=== PATIENT | female | born 1995 | race Caucasian/White ===

== ENCOUNTER 2024-11-17 16:46 | Emergency (ER) | payer MEDICAID, OTHER ==
[~2024-11-17] VITALS: Ht 160 cm; Wt 54.4 kg
--- NOTE | 2024-11-17 17:25 | ED.PDOC ---
History of Present Illness HPI Comments 29-year-old female presents to the ER with no prior medical history and a chief complaint of back pain. Patient reports that she was sitting down and now she called him up her back from him up, there was no trauma involved with the back pain. Patient does have right barnes abrasion with also her LMP in the beginning of October. Denies chills, fever, N/V/D, SOB, CP. No other associated symptoms, modifiers, recent injuries or sick contacts present at this time. Chief Complaint: Back Pain Time Seen by MD: 16:50 Reviewed Notes: Nurses Notes, Medications, Allergies Allergies: Coded Allergies: NO KNOWN ALLERGIES (Unverified , 11/17/24) Information Source: Patient Mode of Arrival: Ambulatory Severity: Moderate Timing: Hours Duration: Since onset, Hours Prehospital treatment: None Past Medical History PAST MEDICAL HISTORY: Denies Surgical History: Denies all surgeries SOFTWARE CONFIGURATION MANAGER History: No Pertinent SOFTWARE CONFIGURATION MANAGER History Family History Family History: Reviewed,noncontributory to illness, Unknown Social History Smoker: Non-Smoker Alcohol: Denies ETOH Use Drugs: Denies Drug Use Lives In: Home Constitutional: denies: chills, diaphoresis, fatigue, fever, malaise, sweats, weakness, others EENTM: denies: blurred vision, double vision, ear bleeding, ear discharge, ear drainage, ear pain, ear ringing, eye pain, eye redness, hearing loss, mouth pain, mouth swelling, nasal discharge, nose bleeding, nose congestion, nose pain, photophobia, tearing, throat pain, throat swelling, voice changes, others Respiratory: denies: cough, hemoptysis, orthopnea, SOB at rest, shortness of breath, SOB with excertion, stridor, wheezing, others Cardiovascular: denies: chest pain, dizzy spells, diaphoresis, Dyspnea on exertion, edema, irregular heart beat, left arm pain, lightheadedness, palpitations, PND, syncope, others Gastrointestinal: denies: abdomen distended, abdominal pain, blood streaked bowels, constipated, diarrhea, dysphagia, difficulty swallowing, hematemesis, melena, nausea, poor appetite, poor fluid intake, rectal bleeding, rectal pain, vomiting, others Genitourinary: denies: abnormal vagina bleeding, burning, dyspareunia, dysuria, flank pain, frequency, hematuria, incontinence, pain, , vagina discharge, urgency, others Neurological: denies: dizziness, fainting, headache, left sided numbness, left sided weakness, numbness, paresthesia, pre-existing deficit, right sided numbness, right sided weakness, seizure, speech problems, tingling, tremors, weakness, others Musculoskeletal: reports: back pain; denies: gout, joint pain, joint swelling, muscle pain, muscle stiffness, neck pain, others Integumetry: denies: bruises, change in color, change in hair/nails, dryness, laceration, lesions, lumps, rash, wounds, others Allergic/Immunocompromised: denies: Difficulty Healing, Frequent Infections, Hives, Itching, others Hematologic/Lymphatic: denies: anemia, blood clots, easy bleeding, easy bruising, swollen glands, others Endocrine: denies: excessive hunger, excessive sweating, excessive thirst, excessive urination, flushing, intolerance to cold, intolerance to heat, unexplained weight gain, unexplained weight loss, others Psychiatric: denies: anxiety, bipolar disorder, depression, hopeless, panic disorder, schizophrenia, sleepless, suicidal, others All Other Systems: Reviewed and Negative Physical Exam Exam Comments Right barnes abrasion General Appearance: No Apparent Distress, Normal HEENT: Normal ENT Inspection, Pharynx Normal, TMs Normal Neck: Full Range of Motion, Non-Tender, Normal, Normal Inspection Respiratory: Chest Non-Tender, Lungs Clear, No Accessory Muscle Use, No Respiratory Distress, Normal Breath Sounds Cardiovascular: No Edema, No JVD, No Murmur, No Gallop, Normal Peripheral Pulses, Regular Rate/Rhythm Breast Exam: Deferred Gastrointestinal: No Organomegaly, Non Tender, No Pulsatile Mass, Normal Bowel Sounds, Soft Genitalia: Deferred Pelvic: Deferred Rectal: Deferred Extremities: No calf tenderness, Normal capillary refill, Normal inspection, Normal range of motion, Non-tender, No pedal edema Musculoskeletal : Apperance: Normal Neurologic: Alert, consulting property manager II-XII nml as Tested, No Motor Deficits, Normal Affect, Normal Mood, No Sensory Deficits Cerebellar Function: Normal Reflexes: Normal Skin: Dry, Normal Color, Warm Lymphatic: No Adenopathy Was a procedure done? Was a procedure done?: No Differential Dx Considerations may include: spinal mass, herniated disc, muscle spasm, fracture, DDD, DJD X-Ray, Labs, Meds, VS Vital Signs Date Time Temp Pulse Resp B/P (MAP) Pulse Ox O2 Delivery O2 Flow Rate FiO2 11/17/24 17:00 97.1 98 20 121/81 (94) 99 97.1 Time of 1ST Reevaluation: 17:20 Reevaluation 1ST: Unchanged Time of 2ND Reevaluation: 18:49 Reevaluation 2ND: Improved Patient Education/Counseling: Diagnosis, Treatment, Prognosis Family Education/Counseling: No Family Present SEPSIS Sepsis Screen Physician Orders Cervical Spine 3v (11/17/24 16:51) Spine Thoracic 2view (11/17/24 16:51) Lumbar Spine 3 View (11/17/24 16:51) Vital Signs Date Time Temp Pulse Resp B/P (MAP) Pulse Ox O2 Delivery O2 Flow Rate FiO2 11/17/24 17:00 97.1 98 20 121/81 (94) 99 97.1 Departure 1 Departure Time of Disposition: 18:50 Impression: Primary Impression: Musculoskeletal pain Disposition: 01 HOME / SELF CARE / HOMELESS Condition: Good e-Prescriptions Ibuprofen Micronized (MOTRIN TABLET) 600 Mg Tb 600 MG PO TID PRN, #40 TAB *Black box warning-NSAIDS can increase risk of [place] & hypertension, GI irritation, ulceration, bleed, perferation. Do not use post cardiac surgery. Use short duration/lowest effective dose. Prov: HOLLY TIM MD 11/17/24 Cyclobenzaprine Hcl (Cyclobenzaprine Hcl) 10 Mg Tab 10 MG PO Q8HP PRN for 2 Days, #6 TAB Prov: HOLLY TIM MD 11/17/24 Discharged With: Self Critical Care Note Critical Care Time?: No Stability Stability form required: No I personally scribed for HOLLY TIM MD ([email or web address]) on 11/17/24 at 17:24. Electronically submitted by Gunnar Hartman ([email or web address]). HOLLY TIM MD Nov 17, 2024 17:24
--- NOTE | 2024-11-17 18:23 | DVH ---
Indication: pain Technique: Radiographs of the cervical, thoracic and lumbar spine Comparison: None FINDINGS/IMPRESSION: Cervical vertebral body heights are maintained. Straightening of normal cervical spine curvature. No prevertebral edema. Disc spaces preserved. Dental hardware. The thoracic vertebral body heights are maintained. Mild thoracic multilevel disc space narrowing. M ild thoracic s shaped curvature. The lumbar vertebral body heights are maintained. Mild lumbar multilevel disc space narrowing most p ronounced at L5-S1. Lumbar alignment preserved. Pelvic vascular phleboliths.
[2024-11-17] MEDS ORDERED: IBU600T PO (18:51)
[2024-11-17] MEDS ORDERED: CYCL-839 PO (18:51)
[2024-11-17 21:00] VITALS: BP 135/85; PULSE 100; RESP 20; TEMP 98.4; O2SAT 100
[2024-11-17] MEDS: KETOROLAC TROMETH 30 MG/ML 1ML VIAL IM ONE (21:08)
== END 2024-11-17 21:00 | disposition home or self-care (01) ==
LOC: EDBD 16:46 → ER 16:53 → EDBD 16:53 → ER 21:00
DX: M79.18 Myalgia, other site (principal)
CPT/HCPCS: 72040; 72070; 72100; 96372; 99284; J1885